=== PATIENT | male | born 1945 | race Caucasian/White ===

== ENCOUNTER 2021-01-29 12:44 | Outpatient (CLI) | payer MEDICARE, OTHER ==
--- NOTE | 2021-01-29 14:37 | MRI Report ---
PROCEDURE: Lumbar Spine W/O INDICATIONS: CHRONIC LOW BACK PAIN TECHNIQUE: Noncontrast sagittal T1 spin echo and T2 fast echo, sagittal STIR, axial T1 and T2 fast spin echo thr ough the lumbar spine. In cases with scoliosis, additional coronal T2 fast spin echo may be performe d. COMPARISON: None. FINDINGS: Image quality: Excellent. Alignment and Curvature: No plain films are available for comparison. Thus, for numbering purposes, 5 lumbar type vertebral bodies with a transitional element at S1 will be presumed for the current rep ort, as denoted on the stewart image panel. This should be confirmed with plain film correlation prior to any lumbar spinal intervention. There is loss of normal lumbar lordosis. Mild grade 1 retrolisthesis of L4 on L5 and L5 on S1. . Bone Marrow: Marrow is of normal overall signal. No acute vertebral body compression fractures. Mi ld reactive signal within the endplates adjacent to the L1-L2, L2-L3, L3-L4, L4-L5, and L5-S1 interve rtebral discs. Spinal Cord: Conus medullaris terminates at the L2-L3 disc space level. Visualized cord demonstrate s normal signal and size. Paraspinous Soft Tissues: No paravertebral masses. T12-L1: Normal in appearance. L1-L2: Mild disc height loss and desiccation. Mild facet and ligament flavum hypertrophy. Mild epi dural lipomatosis. Mild canal stenosis. Mild bilateral foraminal stenosis. L2-L3: Mild facet and ligament flavum hypertrophy. Mild epidural lipomatosis. Mild canal stenosis. Mild bilateral foraminal stenosis. L3-L4: Mild disc desiccation. Mild facet and ligament flavum hypertrophy. Mild epidural lipomatosis . Mild canal stenosis. Mild to moderate bilateral foraminal stenosis. L4-L5: Moderate disc desiccation. Mild disc height loss. Mild diffuse disc bulge. Moderate facet an d ligament flavum hypertrophy. Mild epidural lipomatosis. Severe canal stenosis. Moderate bilateral s ubarticular foraminal stenosis. L5-S1: Moderate disc height loss and desiccation. Mild diffuse disc bulge. Mild facet and ligament flavum hypertrophy. Mild canal stenosis. Moderate to severe left and severe right foraminal stenosis with right greater than left L5 nerve root compression. IMPRESSION: 1. Five lumbar type vertebral bodies with a transitional element at S1, as denoted on the stewart image p cyn, were presumed for the purposes of the current report. Correlation with plainfilms for numberin g purposes is recommended prior to any lumbar spinal intervention. 2. Multilevel degenerative disc and facet disease, in addition to epidural lipomatosis and ligamentum flavum hypertrophy. 3. Multilevel canal stenoses, worst at L4-L5, where there is severe canal stenosis. 4. Multilevel foraminal stenoses, worst at L5-S1 where there is associated intraforaminal nerve root compression. Recommend correlation with clinical symptoms to ascertain relevance of these findings. Reviewed by: Deandra Jenkins MD on 01/29/2021 2:36 PM PDT Approved by: Deandra Jenkins MD on 01/29/2021 2:36 PM PDT Station ID: [id number]
== END 2021-01-29 12:45 | disposition home or self-care (01) ==
LOC: DI 12:44
PROVIDERS: ATTEND Student in an Organized Health Care Education/Training Program
DX: M51.17 Intervertebral disc disorders with radiculopathy, lumbosacral region (principal); M48.062 Spinal stenosis, lumbar region with neurogenic claudication; G89.29 Other chronic pain

== ENCOUNTER 2021-04-02 12:08 | Outpatient (CLI) | payer MEDICARE, OTHER ==
[2021-04-02 12:28] LABS: CALCIUM 9.2 mg/dL (8.5-10.3); CREATININE 0.9 mg/dL (0.6-1.2); POTASSIUM 4.2 mmol/L (3.5-5.0)
== END 2021-04-02 12:09 | disposition home or self-care (01) ==
LOC: LAB 12:08
PROVIDERS: ATTEND Internal Medicine
DX: I10 Essential (primary) hypertension (principal)
CPT/HCPCS: 36415; 80048

== ENCOUNTER 2022-01-16 12:45 | Outpatient (CLI) | payer MEDICARE, OTHER ==
--- NOTE | 2022-01-16 16:38 | MRI Report ---
PROCEDURE: Lumbar Spine W/O INDICATIONS: SPINAL STENOSIS, NECK PAIN TECHNIQUE: Noncontrast sagittal T1 spin echo and T2 fast echo, sagittal STIR, axial T1 and T2 fast spin echo thr ough the lumbar spine. In cases with scoliosis, additional coronal T2 fast spin echo may be performe d. COMPARISON: None. FINDINGS: Image quality: Excellent. Alignment and Curvature: There is normal bony alignment. For the purposes of this dictation there a re seen to be 5 nonrib-bearing lumbar vertebral bodies, and a rudimentary S1-S2 disc. Imaging therefo re would occur from the inferior aspect of the T12-L1 disc level through S1-S2. Bone Marrow: Marrow is of normal overall signal. No acute vertebral body compression fractures. Spinal Cord: Conus medullaris terminates at the L2-L3 level. Visualized cord demonstrates normal si gnal and size. Paraspinous Soft Tissues: No paravertebral masses. T12-L1: Incompletely imaged in axial plane. No canal stenosis or foraminal stenosis. L1-L2: Minimal disc bulge. Facet hypertrophy. No canal stenosis or significant foraminal stenosis. L2-L3: Mild facet hypertrophy. Epidural lipomatosis. Unchanged findings. Borderline canal stenosis . Mild bilateral foraminal stenosis. L3-L4: Facet hypertrophy. Epidural lipomatosis. Unchanged findings. Mild canal stenosis. Mild bilat eral foraminal stenosis. L4-L5: Unchanged findings. Severe canal stenosis secondary to disc bulge, prominent facet hypertrophy , and epidural lipomatosis. Moderate to severe foraminal narrowing bilaterally with a degree of bilat eral L4 nerve root impingement bilaterally. L5-S1: Unchanged findings. Severe disc height loss. Facet and ligament hypertrophy. Mild canal sten osis. Severe right and moderate to severe left foraminal narrowing. There is impingement on the exiti ng right L5 nerve root and flattening deformity on the exiting left L5 nerve root. IMPRESSION: 1. Findings do not significant change. 2. Underlying multilevel facet arthropathy. 3. Multilevel canal stenosis is mild at L3-L4, severe at L4-L5, and mild at L5-S1. 4. Significant multilevel foraminal narrowing as described above. Findings include moderate to severe bilateral foraminal narrowing at L4-L5 and severe right foraminal narrowing and moderate to severe l eft foraminal narrowing at L5-S1. Comment: If surgery is planned in this patient, recommend correlation with sagittal imaging for appro priate surgical level. Reviewed by: Juan Carlos Mendieta MD on 01/16/2022 4:36 PM PDT Approved by: Juan Carlos Mendieta MD on 01/16/2022 4:36 PM PDT Station ID: [id number]
--- NOTE | 2022-01-16 16:48 | MRI Report ---
PROCEDURE: Cervical Spine W/O INDICATIONS: SPINAL STENOSIS, NECK PAIN TECHNIQUE: Noncontrast sagittal T1 spin echo and T2 fast spin echo, sagittal STIR, foraminal oblique sagittal T2 fast spin echo, and axial gradient echo or T2 fast spin echo through the cervical spine. COMPARISON: None. FINDINGS: Image quality: Excellent. Alignment and Curvature: There is loss of the expected cervical lordosis. Bone Marrow: Marrow demonstrates normal overall signal. Spinal Cord: Visualized spinal cord has normal size and signal. No cerebellar tonsillar herniation. Paraspinous Soft Tissues: No paravertebral masses. Prevertebral soft tissues are normal in thicknes s. C2-C3: Mild disc desiccation and broad-based disc bulge. Moderate bilateral foraminal stenosis. No c anal stenosis. C3-C4: Mild disc desiccation and height loss. Broad based disc bulge. Mild effacement of the anteri or CSF space. Mild canal stenosis. Moderate right and severe left foraminal stenosis. C4-C5: Moderate disc desiccation and height loss. Mild effacement of the anterior CSF space. No anitha l stenosis. Moderate right and severe left foraminal stenosis. C5-C6: Moderate disc desiccation and height loss. Large posterior osteophyte complex with complete e ffacement of the CSF space, marked narrowing of the left lateral recess, severe canal stenosis, and d eformity of the cord. No cord signal abnormality. There is severe bilateral neural foraminal stenosis . C6-C7: Severe disc desiccation and height loss. Large posterior disc osteophyte complex with effacem ent of the CSF space, severe canal stenosis, narrowing of the bilateral lateral recesses, and deformi ty of the cord. No cord signal abnormality. Severe bilateral neural foraminal stenosis. C7-T1: Moderate disc desiccation and height loss. Broad based disc bulge. Epidural lipomatosis with resultant severe canal stenosis. No neural foraminal stenosis. IMPRESSION: 1. Multilevel disc desiccation and height loss most severe at C5-6 and C6-7. 2. Multilevel posterior disc osteophyte complexes. These are most severe at C5-6 and C6-7 where there is severe canal stenosis and deformity of the cord. No appreciable cord signal abnormality. 3. Severe left neural foraminal stenosis at C3-4, C4-5, severe bilateral foraminal stenosis at C5-6 a nd C6-7. 4. Moderate right foraminal stenosis at C3-4 and C4-5. 5. Epidural lipomatosis at C6-7 with resultant severe canal stenosis. Reviewed by: Lina Fontanez MD on 01/16/2022 4:47 PM PDT Approved by: Lina Fontanez MD on 01/16/2022 4:47 PM PDT Station ID: [id number]
== END 2022-01-16 12:46 | disposition home or self-care (01) ==
LOC: DI 12:45
PROVIDERS: ATTEND Neurological Surgery
DX: M47.812 Spondylosis without myelopathy or radiculopathy, cervical region (principal); M50.31 Other cervical disc degeneration, high cervical region; M48.02 Spinal stenosis, cervical region; E88.2 Lipomatosis, not elsewhere classified; M47.816 Spondylosis without myelopathy or radiculopathy, lumbar region; M48.061 Spinal stenosis, lumbar region without neurogenic claudication; M47.817 Spondylosis without myelopathy or radiculopathy, lumbosacral region; M48.07 Spinal stenosis, lumbosacral region

== ENCOUNTER 2022-07-05 05:38 | Emergency (ER) | payer MEDICARE, OTHER ==
[2022-07-05] MEDS ORDERED: LIDOCAINE 2% URO-JET 5 ML SYRINGE UR STA (05:59)
--- NOTE | 2022-07-05 06:12 | ED Physician Documentation ---
PD HPI MALE - Stated complaint Stated Complaint: MALE - Chief complaint Chief Complaint: Abd Pain - History obtained from History obtained from: Patient - History of Present Illness Timing - onset: How many days ago (2) Timing - duration: Days (2) Timing - details: Abrupt onset (had difficulty urinating after back surgery 2 days ago, laminotomy at L5-S1 level. Had in and out cath in recovery. Was having small dribbles. discharged without catheter thus. Has had small dribbles and now just drops with attempting urination. Used stool softeners with good BM output.), Still present Associated symptoms: Unable to urinate Recently seen: Surgery (2 days ago lumbar laminotomy L5-S1 level without pr oblems.) Review of Systems Constitutional: denies: Fever, Chills : reports: Frequency (with small dribbles only since the surgery.), Hesitancy, Unable to Void (except drops for the past 6-8 hours.). denies: Hematuria, Discharge Neurologic: denies: Focal weakness, Numbness PD PAST MEDICAL HISTORY - Past Medical History Cardiovascular: Hypertension - Past Surgical History Past Surgical History: No - Present Medications Home Medications: Ambulatory Orders Medication Instructions Recorded Confirmed lisinopriL [Zestril] 10 mg PO BID 12/08/13 07/05/22 Amlodipine Besylate [Norvasc] 10 mg PO DAILY 07/05/22 07/05/22 Tamsulosin [Flomax] 0.4 mg PO DAILY #5 cap 07/05/22 - Allergies Allergies/Adverse Reactions: Allergies Allergy/AdvReac Type Severity Reaction Status Date / Time No Known Drug Allergies Allergy Verified 07/05/22 05:52 - Social History Does the pt smoke?: Yes Smoking Status: Former smoker Does the pt drink ETOH?: Yes Does the pt have substance abuse?: No - Immunizations Immunizations are current?: Yes - POLST Patient has POLST: No PD ED PE NORMAL - Vitals Vital signs reviewed: Yes - General General: Alert and oriented X 3, Well developed/nourished, Other (Appears uncomfortable due to lower abd fullness. ) - Cardiac Cardiac: RRR, No murmur - Respiratory Respiratory: Clear bilaterally - Abdomen Abdomen: Normal bowel sounds, Soft, No organomegaly, Other (Fullness and distention with some tenderness in the suprapubic area consistent with bladder fullness. No percussion or rebound.) - Male Male : Steaming Cabinet Tender present (), Other (normal sensation at tip of penis. normal cremaster. Good sensation medial thighs and gluteal area. ) - Rectal Rectal: Other (minimal stool in vault (no impaction). No prostate tenderness. Symmetric enlargement of the prostate. Normal rectal muscle tone. ) - Back Back: Other (bandaged small surgical area without surrounding redness.) - Derm Derm: Normal color, Warm and dry Results - Vitals Vitals: Vital Signs - 24 hr 07/05/22 05:48 Temperature 36.8 C Heart Rate 91 Respiratory 18 Rate Blood Pressure 157/93 H O2 Saturation 98 Oxygen O2 Source Room air PD MEDICAL DECISION MAKING - ED course Complexity details: re-evaluated patient (feeling much better with rouse and 1200 ml output. Will leave rouse in for now. ), considered differential (post op urinary retention. Not using any narcotics. Has normal neuro in perineal/rectal area, so not seeming neurologic/spine. Not constipated. ), d/w patient Departure - Departure Disposition: 01 Home, Self Care Clinical Impression: Acute urinary retention, History of back surgery Condition: Stable Record reviewed to determine appropriate education?: Yes Instructions: ED Retention Urinary Male Follow-Up: CODY WESTBROOK MD [Primary Care Provider] - Prescriptions: Tamsulosin [Flomax] 0.4 mg PO DAILY #5 cap Comments: Have the catheter in place for the next few days. Contact your back surgeon to discuss when to take it out. Typically would think of a few days for the effect of surgery and anesthesia and such to wear off. In the meantime also take tamsulosin prostate medicine to help with reduction of the prostate size.
[2022-07-05] MEDS ORDERED: TAMSULOSIN 0.4 MG CAPSULE PO STA (06:26)
[2022-07-05 06:43] VITALS: BP 121/79
== END 2022-07-05 06:47 | disposition home or self-care (01) ==
LOC: ED 05:38
DX: R33.9 Retention of urine, unspecified (principal); Z98.890 Other specified postprocedural states; I10 Essential (primary) hypertension; Z87.891 Personal history of nicotine dependence
CPT/HCPCS: 51702; 99283; 99284; A9270

== ENCOUNTER 2022-07-08 13:51 | Emergency (ER) | payer MEDICARE, OTHER ==
[2022-07-08 14:27] VITALS: BP 148/79
== END 2022-07-08 15:22 | disposition left against medical advice (07) ==
LOC: ED 13:51
DX: Z53.21 Procedure and treatment not carried out due to patient leaving prior to being seen by health care provider (principal)

== ENCOUNTER 2022-07-14 15:53 | Emergency (ER) | payer MEDICARE, OTHER ==
--- OUTSIDE RECORDS SUMMARY | 2022-07-14 16:06 | EXTERNAL MEDICAL SUMMARY RPT | Continuity of Care Document ---
:1945 Author Organization [place] Address [address] [place] [address] Phone Care Team Providers Name Role Phone Unavailable Unavailable Unavailable Whit Velasco Pa-C Unavailable Unavailable Allergies No information. Encounters No information. Functional Status No information. Immunizations No information. Medications date description facility +0000 tamsulosin [facility] [place] [phone] tamsulosin [facility] [place] Problems No information. Procedures date description facility +0000 Visit Code Hold [facility] [place] Results/Labs No information. Social History date description facility +0000 Former smoker [facility] [place] Vital Signs date measurement value units +0000 BMI BMI 34.99 kg/m2 [id number] BP_diastolic BP_diastolic 83 mmHg +0000 BP_systolic BP_systolic 160 mmHg +0000 heart_rate heart_rate 93 /min +0000 height_metric height_metric 177.8 cm [id number] height_standard height_standard 70 in [id number]+0000 respiration_rate respiration_rate 18 /min +0000 temperature_metric temperature_metric 36.44 C [id number]+0000 temperature_standard temperature_standard 9 7.6 F [id number]+0000 weight_metric weight_metric 110.22 kg [id number]+0000 weight_standard weight_standard 243 lb
--- NOTE | 2022-07-14 17:11 | ED Physician Documentation ---
History of Present Illness - Stated complaint Stated Complaint: MALE - Chief complaint Chief Complaint: Abd Pain - Additonal information Additional information: 77-year-old male presents to the emergency department for evaluation of acute urinary retention. Symptoms began last night. He did undergo a lumbar decompression surgery on 03 July. He was seen in this emergency department on the for acute urinary retention. A Almonte catheter was placed and it was subsequently removed at an outpatient walk-in clinic visit on the . He did take Flomax for 1 week. He reports initially when the Almonte was removed he was able to urinate well until yesterday evening. He presents very uncomfortable with a visibly distended bladder. Initial bladder scan shows a volume of approximately 1300 mL. He denies any fevers. Patient is not taking any narcotic pain medications. Occasionally he is using 2 Tylenol which she is finding adequate for pain relief. He is uncertain if he has a history of prostate issues Patient has no saddle anesthesia. No fevers. Review of Systems Constitutional: denies: Fever Cardiac: reports: Reviewed and negative Respiratory: reports: Reviewed and negative : reports: Unable to Void Skin: reports: Other (Surgical incision) PD PAST MEDICAL HISTORY - Past Medical History Cardiovascular: Hypertension - Past Surgical History Past Surgical History: No - Present Medications Home Medications: Ambulatory Orders Medication Instructions Recorded Confirmed lisinopriL [Zestril] 10 mg PO BID 12/08/13 07/05/22 Amlodipine Besylate [Norvasc] 10 mg PO DAILY 07/05/22 07/05/22 Tamsulosin [Flomax] 0.4 mg PO DAILY #5 cap 07/05/22 Cefpodoxime Proxetil [Vantin] 100 mg PO Q12H #14 tablet 07/14/22 Tamsulosin HCl [Flomax] 0.4 mg PO DAILY #30 cap 07/14/22 - Allergies Allergies/Adverse Reactions: Allergies Allergy/AdvReac Type Severity Reaction Status Date / Time No Known Drug Allergies Allergy Verified 07/14/22 16:23 - Social History Does the pt smoke?: Yes Smoking Status: Former smoker Does the pt drink ETOH?: Yes Does the pt have substance abuse?: No - Immunizations Immunizations are current?: Yes - POLST Patient has POLST: No PD ED PE NORMAL - General General: Alert and oriented X 3, No acute distress - HEENT HEENT: Atraumatic, Moist mucous membranes - Neck Neck: Supple, no meningeal sign - Cardiac Cardiac: RRR, No murmur - Respiratory Respiratory: No respiratory distress - Abdomen Abdomen: Normal bowel sounds, Soft, Non distended. No: Non tender (Palpable and distended bladder just below the level of the umbilicus. Bladder scan shows 1300 mL) - Rectal Rectal: Other (Normal rectal tone. No saddle anesthesia. Rectal vault is void of stool) - Back Back: No CVA TTP, No spinal TTP - Derm Derm: Normal color, Warm and dry, No rash - Extremities Extremities: No deformity - Neuro Neuro: Alert and oriented X 3 Eye Opening: Spontaneous Motor: Obeys Commands Verbal: Oriented GCS Score: 15 Results - Vitals Vitals: Vital Signs - 24 hr 07/14/22 16:19 Temperature 36.8 C Heart Rate 123 H Respiratory 20 Rate Blood Pressure 169/93 H O2 Saturation 95 Oxygen O2 Source Room air - Labs Labs: Laboratory Tests 07/14/22 07/14/22 17:10 17:15 Sodium 134 L Potassium 3.6 Chloride 100 L Carbon Dioxide 22 Anion Gap 12.0 BUN 15 Creatinine 0.9 Estimated GFR (MDRD) 81 L Glucose 123 H Calcium 9.3 Urine Color LT. YELLOW Urine Clarity CLOUDY Urine pH 6.0 Ur Specific [place] <=1.005 Urine Protein NEGATIVE Urine Glucose (UA) NEGATIVE Urine Ketones NEGATIVE Urine Occult Blood NEGATIVE Urine Nitrite POSITIVE H Urine Bilirubin NEGATIVE Urine Urobilinogen 0.2 (NORMAL) Ur Leukocyte Esterase SMALL H Urine RBC 0-5 Urine WBC 11-25 H Ur Squamous Epith Cells NONE SEEN Urine Bacteria Many H Ur Microscopic Review INDICATED Urine Culture Comments INDICATED PD MEDICAL DECISION MAKING - ED course Complexity details: reviewed results, re-evaluated patient, considered differential, d/w patient ED course: 77-year-old male presents to the emergency department for evaluation of acute urinary retention. Symptoms began last night. Second ED visit for similar si nce 05 July. He did have a lumbar decompression surgery about [address] [facility]. He presents with no saddle anesthesia normal rectal tone. ED bladder scan shows a volume of 1300 mL. A Almonte catheter was placed. Urine is nitrite positive. Culture is pending but I am going to start him on Vantin for what may be acute cystitis related to urinary retention. We should also consider anesthesia as a possible side effect. Patient is not currently taking any opiates. He will also be resumed on Flomax as prostate concerns could be complicating factors. Patient will follow closely with his surgeons as well as his primary care provider. May benefit from referral to urology. Emergent return precautions discussed. Departure - Departure Disposition: 01 Home, Self Care Clinical Impression: Acute urinary retention Condition: Stable Record reviewed to determine appropriate education?: Yes Prescriptions: Tamsulosin HCl [Flomax] 0.4 mg PO DAILY #30 cap Cefpodoxime Proxetil [Vantin] 100 mg PO Q12H #14 tablet Comments: Gurvinder menezes are seen today in the emergency department for an inability to Urinate. You may be having urinary retention because of what could be a mild bladder infection. I have sent a prescription for Vantin and antibiotic to the pharmacy. I am also resuming you on the medication called Flomax in case prostate concerns are contributing to your symptoms. I encourage you to discuss this ED visit very closely with your primary care doctor as well as your surgeons at [facility]. You may benefit from referral to a urologist. I would also recommend that the Almonte catheter be discontinued in about 6 days time. If at that point you continue to have urinary retention he will most certainly require referral to a urologist. Return to the emergency department if you have any concerns with Almonte drainage, develop any severe pain, vomiting or fevers
[2022-07-14] MEDS ORDERED: TAMSULOSIN 0.4 MG CAPSULE PO STA (17:15)
[2022-07-14 17:17] LABS: BILIRUBIN,URINE NEGATIVE (NEGATIVE); GLUCOSE, URINE (UA) NEGATIVE (NEGATIVE); KETONES,URINE (UA) NEGATIVE (NEGATIVE); LEUKOCYTE ESTERASE, URINE SMALL (NEGATIVE); NITRITE,URINE POSITIVE (NEGATIVE); OCCULT BLOOD,URINE NEGATIVE (NEGATIVE); PROTEIN,URINE NEGATIVE (NEGATIVE); UROBILINOGEN,URINE 0.2 (NORMAL) E.U./dL (NORMAL)
[2022-07-14 17:29] LABS: CALCIUM 9.3 mg/dL (8.5-10.3); CREATININE 0.9 mg/dL (0.6-1.2); POTASSIUM 3.6 mmol/L (3.5-5.0)
[2022-07-14 17:31] LABS: CLARITY,URINE CLOUDY (CLEAR)
[2022-07-14] MEDS ORDERED: CEFPODOXIME PROXETIL 100 MG TABLET PO STA (17:37)
[2022-07-14 17:39] LABS: BACTERIA,URINE Many /HPF (None Seen); RBC,URINE 0-5 /HPF (0-5); SQUAMOUS EPITHELIAL CELL,UR NONE SEEN (<= Few)
[2022-07-14 18:05] VITALS: BP 146/78
== END 2022-07-14 18:20 | disposition home or self-care (01) ==
LOC: ED 15:53
DX: R33.9 Retention of urine, unspecified (principal); Z87.891 Personal history of nicotine dependence
CPT/HCPCS: 36415; 51702; 51798; 80048; 81001; 87077; 87086; 87181; 99283; A9270; 81003

== ENCOUNTER 2022-07-26 08:00 | Outpatient (CLI) | payer MEDICARE, OTHER ==
[2022-07-26 14:50] LABS: BILIRUBIN,URINE NEGATIVE (NEGATIVE); GLUCOSE, URINE (UA) NEGATIVE (NEGATIVE); KETONES,URINE (UA) NEGATIVE (NEGATIVE); LEUKOCYTE ESTERASE, URINE MODERATE (NEGATIVE); NITRITE,URINE POSITIVE (NEGATIVE); OCCULT BLOOD,URINE NEGATIVE (NEGATIVE); PROTEIN,URINE NEGATIVE (NEGATIVE); UROBILINOGEN,URINE 0.2 (NORMAL) E.U./dL (NORMAL)
[2022-07-26 14:54] LABS: CLARITY,URINE HAZY (CLEAR)
[2022-07-26 15:14] LABS: BACTERIA,URINE Many /HPF (None Seen); EPITHELIAL CELLS,UR RARE Transitional /HPF (<= Few); RBC,URINE 0-5 /HPF (0-5); SQUAMOUS EPITHELIAL CELL,UR RARE Squamous (<= Few); WBC,URINE >25 /HPF (0-3)
== END 2022-07-26 23:59 | disposition home or self-care (01) ==
LOC: LAB.R 08:00
PROVIDERS: ATTEND Physician Assistant
DX: R30.0 Dysuria (principal)
CPT/HCPCS: 81001; 87077; 87086; 87181

== ENCOUNTER 2022-08-22 08:00 | Outpatient (CLI) | payer MEDICARE, OTHER ==
[2022-08-22 19:47] LABS: BILIRUBIN,URINE NEGATIVE (NEGATIVE); GLUCOSE, URINE (UA) NEGATIVE (NEGATIVE); KETONES,URINE (UA) NEGATIVE (NEGATIVE); LEUKOCYTE ESTERASE, URINE MODERATE (NEGATIVE); NITRITE,URINE POSITIVE (NEGATIVE); OCCULT BLOOD,URINE NEGATIVE (NEGATIVE); PROTEIN,URINE NEGATIVE (NEGATIVE); UROBILINOGEN,URINE 0.2 (NORMAL) E.U./dL (NORMAL)
[2022-08-22 19:48] LABS: CLARITY,URINE HAZY (CLEAR)
[2022-08-22 20:05] LABS: BACTERIA,URINE Many /HPF (None Seen); RBC,URINE 0-5 /HPF (0-5); SQUAMOUS EPITHELIAL CELL,UR NONE SEEN (<= Few); WBC,URINE >25 /HPF (0-3)
== END 2022-08-22 23:59 | disposition home or self-care (01) ==
LOC: LAB.R 08:00
PROVIDERS: ATTEND Physician Assistant
DX: R30.0 Dysuria (principal)
CPT/HCPCS: 81001; 87077; 87086; 87181

== ENCOUNTER 2023-01-09 12:23 | Outpatient (CLI) | payer MEDICARE, OTHER ==
[2023-01-09 12:57] LABS: ALBUMIN 4.4 g/dL (3.2-5.5); ALBUMIN/GLOBULIN RATIO 1.6 (1.0-2.2); BILIRUBIN,TOTAL 0.8 mg/dL (0.2-1.0); CALCIUM 9.1 mg/dL (8.5-10.3); CREATININE 0.8 mg/dL (0.6-1.2); POTASSIUM 4.6 mmol/L (3.5-5.0); TOTAL PROTEIN 7.1 g/dL (6.7-8.2)
[2023-01-09 13:23] LABS: ESTIMATED AVERAGE GLUCOSE 97 mg/dL (70-100)
== END 2023-01-09 12:24 | disposition home or self-care (01) ==
LOC: LAB 12:23
PROVIDERS: ATTEND Internal Medicine
DX: E11.9 Type 2 diabetes mellitus without complications (principal)
CPT/HCPCS: 36415; 80053; 83036

== ENCOUNTER 2024-04-23 08:00 | Outpatient (CLI) | payer MEDICARE, OTHER ==
[2024-04-27 10:42] LABS: CLARITY,URINE CLEAR (CLEAR); LEUKOCYTE ESTERASE, URINE NEGATIVE (NEGATIVE); NITRITE,URINE NEGATIVE (NEGATIVE)
[2024-04-27 10:43] LABS: BILIRUBIN,URINE NEGATIVE (NEGATIVE); GLUCOSE, URINE (UA) NEGATIVE (NEGATIVE); KETONES,URINE (UA) NEGATIVE (NEGATIVE); OCCULT BLOOD,URINE NEGATIVE (NEGATIVE); PROTEIN,URINE NEGATIVE (NEGATIVE); UROBILINOGEN,URINE 0.2 (NORMAL) E.U./dL (NORMAL)
== END 2024-04-23 23:59 | disposition home or self-care (01) ==
LOC: LAB.R 08:00
PROVIDERS: ATTEND Internal Medicine
DX: N40.0 Benign prostatic hyperplasia without lower urinary tract symptoms (principal); N30.00 Acute cystitis without hematuria
CPT/HCPCS: 81001; 81003; 87086

== ENCOUNTER 2024-05-13 13:05 | Outpatient (CLI) | payer MEDICARE, OTHER ==
[2024-05-13 13:27] LABS: BILIRUBIN,URINE NEGATIVE (NEGATIVE); GLUCOSE, URINE (UA) NEGATIVE (NEGATIVE); KETONES,URINE (UA) NEGATIVE (NEGATIVE); LEUKOCYTE ESTERASE, URINE NEGATIVE (NEGATIVE); NITRITE,URINE NEGATIVE (NEGATIVE); OCCULT BLOOD,URINE NEGATIVE (NEGATIVE); PH,URINE 7.5 PH (5.0-7.5); PROTEIN,URINE NEGATIVE (NEGATIVE); UROBILINOGEN,URINE 0.2 (NORMAL) E.U./dL (NORMAL)
[2024-05-13 13:40] LABS: CLARITY,URINE CLEAR (CLEAR)
== END 2024-05-13 13:06 | disposition home or self-care (01) ==
LOC: LAB 13:05
PROVIDERS: ATTEND Internal Medicine
DX: N30.00 Acute cystitis without hematuria (principal)
CPT/HCPCS: 81001; 81003; 87086